=== PATIENT | female | born 1995 | race Native Hawaiian/Other Pacific Islander ===

== ENCOUNTER 2018-08-03 12:16 | Emergency (ER) | payer MEDICAID ==
--- NOTE | 2018-08-03 13:30 | Emergency Department Report ---
- General Chief Complaint: Upper Respiratory Infection Stated Complaint: COUGH/CHEST CONGESTION/HEADACHE Time Seen by Provider: 08/03/18 12:40 Source: patient Mode of arrival: Ambulatory Limitations: No Limitations - History of Present Illness Initial Comments: 23-year-old female has a past medical history of hyperthyroidism, currently on treatment range of motion department complaining of a 3 week history of what she feels is upper surface infection. Been having some coughing and nasal congestion with some occasional coryza. Occasional headaches and she has frequent cough spell, she developed some chest irritation. Reports no hemoptysis, no hematemesis scant mucous discharge. No odynophagia or dysphagia. No fevers, chills, sweats. No palpitations. No nausea no vomiting no diarrhea. No dysuria. MD Complaint: cough, rhinorrhea, nasal congestion -: week(s) (3) Severity: mild Quality: dull Consistency: intermittent Associated Symptoms: headache, rhinorrhea, nasal congestion, cough. denies: myalgias, diaphoresis, nausea, vomiting, diarrhea, confusion, right sweats, epistaxis, ear pain - Related Data Previous Rx's Medication Instructions Recorded Last Taken Type Omeprazole [PriLOSEC] 20 mg PO QDAY #30 capsule. 07/31/13 Unknown Rx Ondansetron [Zofran] 4 mg PO Q6HR PRN #10 tablet 07/31/13 Unknown Rx Ibuprofen [Motrin 600 MG tab] 600 mg PO Q8H PRN #30 tablet 06/09/15 Unknown Rx Meclizine [Antivert] 25 mg PO TID PRN #15 tablet 06/09/15 Unknown Rx ALBUTEROL Inhaler (OR & NICU) 1 puff IH Q4-6H PRN #1 inha 08/03/18 Unknown Rx [ProAir HFA Inhaler] guaiFENesin/CODEINE [Robitussin AC] 5 ml PO Q6H PRN #120 ml 08/03/18 Unknown Rx predniSONE [Deltasone] 50 mg PO QDAY #5 tab 08/03/18 Unknown Rx Allergies Allergy/AdvReac Type Severity Reaction Status Date / Time No Known Allergies Allergy Unverified 07/31/13 16:47 ED Review of Systems ROS: Stated complaint: COUGH/CHEST CONGESTION/HEADACHE Other details as noted in HPI Constitutional: denies: chills, fever Eyes: denies: eye pain, eye discharge, vision change ENT: denies: ear pain, throat pain Respiratory: denies: cough, shortness of breath, wheezing Cardiovascular: denies: chest pain, palpitations Endocrine: no symptoms reported Gastrointestinal: denies: abdominal pain, nausea, diarrhea Genitourinary: denies: urgency, dysuria, discharge Musculoskeletal: denies: back pain, joint swelling, arthralgia Skin: denies: rash, lesions Neurological: denies: headache, weakness, paresthesias Psychiatric: denies: anxiety, depression Hematological/Lymphatic: denies: easy bleeding, easy bruising ED Past Medical Hx - Past Medical History Hx Seizures: Yes Additional medical history: hyperthyroidism - Surgical History Past Surgical History?: No - Social History Smoking Status: Never Smoker Substance Use Type: None - Medications Home Medications: Home Medications Medication Instructions Recorded Confirmed Last Taken Type Omeprazole [PriLOSEC] 20 mg PO QDAY #30 capsule. 07/31/13 Unknown Rx Ondansetron [Zofran] 4 mg PO Q6HR PRN #10 tablet 07/31/13 Unknown Rx Ibuprofen [Motrin 600 MG tab] 600 mg PO Q8H PRN #30 tablet 06/09/15 Unknown Rx Meclizine [Antivert] 25 mg PO TID PRN #15 tablet 06/09/15 Unknown Rx ALBUTEROL Inhaler (OR & NICU) 1 puff IH Q4-6H PRN #1 inha 08/03/18 Unknown Rx [ProAir HFA Inhaler] guaiFENesin/CODEINE [Robitussin AC] 5 ml PO Q6H PRN #120 ml 08/03/18 Unknown Rx predniSONE [Deltasone] 50 mg PO QDAY #5 tab 08/03/18 Unknown Rx ED Physical Exam - General Limitations: No Limitations General appearance: alert, in no apparent distress - Head Head exam: Present: atraumatic, normocephalic - Eye Eye exam: Present: normal appearance, PERRL, EOMI Pupils: Present: normal accommodation - ENT ENT exam: Present: mucous membranes moist, other (congestion bilaterally, small pleural effusion on the left) - Neck Neck exam: Present: normal inspection, full ROM. Absent: lymphadenopathy - Respiratory Respiratory exam: Present: normal lung sounds bilaterally. Absent: respiratory distress - Cardiovascular Cardiovascular Exam: Present: regular rate, normal rhythm. Absent: systolic murmur, diastolic murmur, rubs, gallop - GI/Abdominal GI/Abdominal exam: Present: soft, normal bowel sounds - Extremities Exam Extremities exam: Present: normal inspection - Back Exam Back exam: Present: normal inspection - Neurological Exam Neurological exam: Present: alert, oriented X3 - Psychiatric Psychiatric exam: Present: normal affect, normal mood - Skin Skin exam: Present: warm, dry, intact, normal color. Absent: rash ED Course Vital Signs 08/03/18 12:21 Temperature 98.5 F Pulse Rate 108 H Respiratory 20 Rate Blood Pressure 122/75 O2 Sat by Pulse 100 Oximetry Critical care attestation.: If time is entered above; I have spent that time in minutes in the direct care of this critically ill patient, excluding procedure time. ED Disposition Clinical Impression: Cough, URI (upper respiratory infection) Disposition: -01 TO HOME OR SELFCARE Is pt being admited?: No Does the pt Need Aspirin: No Condition: Stable Instructions: Dextromethorphan (By mouth), Cold Symptoms (ED), Acute Cough (ED)
== END 2018-08-03 14:00 | disposition home or self-care (01) ==
LOC: ED 12:16
CPT/HCPCS: 99282